=== PATIENT | male | born 1960 | race Caucasian/White ===

== ENCOUNTER 2019-10-21 09:05 | Day surgery (SDC) | payer OTHER ==
[~2019-10-21 09:05] MED LIST: CEFAZOLIN SODIUM 1 GM in DEXTROSE 5%-WATER 50 ML IV PRN; LIDOCAINE 1%/EPINEPHRINE INJ 20 ML VIAL ONE
[2019-10-21 09:51] LABS: HEMATOCRIT 50.9 % (37.9-51.0); HEMOGLOBIN 17.6 g/dL (13.5-17.0); MEAN CORPUSCULAR HEMOGLOBIN 30.7 pg (27.0-33.4); MEAN CORPUSCULAR HGB CONC 34.5 g/dL (32.0-36.0); MEAN CORPUSCULAR VOLUME 89 fl (80-97); PLATELET COUNT 188 10^3/uL (150-450); RED BLOOD COUNT 5.72 10^6/uL (4.35-5.55); RED CELL DISTRIBUTION WIDTH 13.2 % (11.5-14.0); WHITE BLOOD COUNT 5.6 10^3/uL (4.0-10.5)
[2019-10-21 10:11] LABS: ANION GAP 12 (5-19); BLOOD UREA NITROGEN 21 mg/dL (7-20); CALCIUM 9.8 mg/dL (8.4-10.2); CARBON DIOXIDE 28 mmol/L (22-30); CHLORIDE 103 mmol/L (98-107); GLUCOSE 96 mg/dL (75-110); POTASSIUM 3.8 mmol/L (3.6-5.0)
[2019-10-21] MEDS ORDERED: FENTANYL CITRATE INJ/PF 100 MCG/2 ML AMPUL ONE ×2 (10:23→11:30)
[2019-10-21] MEDS ORDERED: MIDAZOLAM 2 MG/2 ML INJ ONE ×2 (10:23→11:31)
[2019-10-21] MEDS ORDERED: PROPOFOL INJ 200 MG/20 ML VIAL IV ONE ×2 (10:24→11:31)
[2019-10-21] MEDS ORDERED: FENTANYL CITRATE INJ/PF 100 MCG/2 ML AMPUL IV PRN ×3 (11:50)
[2019-10-21] MEDS ORDERED: MORPHINE SULFATE 10 MG/ML INJ IV PRN (11:50)
[2019-10-21] MEDS ORDERED: DIPHENHYDRAMINE HCL 50 MG/ML VIAL IV PRN (11:50)
[2019-10-21] MEDS ORDERED: OXYCODONE-ACETAMINOPHEN 5-325 MG TABLET PO PRN ×2 (11:50)
[2019-10-21] MEDS ORDERED: ONDANSETRON HCL INJ/PF 4 MG/2 ML SDV IV PRN (11:50)
[2019-10-21] MEDS ORDERED: MEPERIDINE HCL/PF INJ 25 MG/1 ML DISP.SYRIN IV PRN (11:50)
[2019-10-21] MEDS ORDERED: LIDOCAINE 1%/EPINEPHRINE INJ 20 ML VIAL INJ ONE (12:01)
--- NOTE | 2019-10-21 12:30 | Discharge Summary ---
Discharge Summary (SDC) - Discharge Final Diagnosis: Groin lymphadenopathy Date of Surgery: 10/21/19 Discharge Date: 10/21/19 Condition: Good Treatment or Instructions: Allow Steri-Strips to fall off; shower in 48 hours; prescription on chart; follow-up with Dr. Gamez in 2 weeks. Referrals: ROBI SALVADOR MD [Primary Care Provider] - Discharge Diet: As Tolerated Discharge Activity: Activity As Tolerated Home Care Assistance: None Needed Report the Following to Your Physician Immediately: Shortness of Breath, Increase in Pain, Signs of Hyperglycemia, Fever over 101 Degrees
--- NOTE | 2019-10-21 12:33 | Operative Report ---
Operative Report DATE OF SURGERY: 10/21/19 PREOPERATIVE DIAGNOSIS: Right groin lymphadenopathy and retroperitoneal lymphad enopathy POSTOPERATIVE DIAGNOSIS: Same OPERATION: Open excisional biopsy of right groin superficial lymph node SURGEON: STEVO BRUSH ANESTHESIA: LMAC TISSUE REMOVED OR ALTERED: 1 groin lymph node, enlarged COMPLICATIONS: None ESTIMATED BLOOD LOSS: Scant INTRAOPERATIVE FINDINGS: See below PROCEDURE: The patient was seen in the preop holding area the right groin was marked. The patient then taken the main operating room where LMAC anesthesia was induced. Right groin was prepped and draped with Betadine. Surgical plan surgical timeout conducted. The skin overlying the bulky right groin superficial lymphadenopathy was anesthetized 1% plain lidocaine. Approximately 3-1/2 cm incision was made on the diagonal over the point of maximum tissue distention. Cutaneous tissue was divided with electrocautery. Superficial fascia divided and then the bulky adenopathy was encountered. A 2-0 Vicryl suture was placed in the most prominent lymph node. Attempts were made to resect this lymph node leaving the bulk of the other lymph nodes behind, however it was fused with several lymph nodes which required division using electrocautery. Mainly lymph node surfaces were oversewed with 2-0 Vicryl suture and cauterized. The node excised was approximately 2 cm in width. It contained a 2-0 Vicryl suture. It was sent to pathology fresh in no formalin. The wound was inspected for bleeding and lymph drainage and there was none. Wound closed in layers with 2-0 Vicryl 3-0 Vicryl benzoin and Steri-Strips. Patient tolerated the procedure well, taken recovery room in stable condition.
--- NOTE | 2019-10-21 12:44 | EKG REPORT ---
SEVERITY:- ABNORMAL ECG - SINUS RHYTHM LEFT ANTERIOR FASCICULAR BLOCK : Confirmed by: Katlin Campoverde MD 21-Oct-2019 12:43:55
[2019-10-21] MEDS ORDERED: DEXAMETHASONE SOD PHOSPHATE INJ 4 MG/1 ML VIAL ONE (14:31)
[2019-10-21] MEDS ORDERED: ONDANSETRON HCL INJ/PF 4 MG/2 ML SDV ONE (14:31)
[2019-10-21] MEDS ORDERED: KETOROLAC TROMETHAMINE 60 MG/2 ML SDV ONE (14:31)
[2019-10-21 14:32] VITALS: BP 144/86
== END 2019-10-21 14:20 | disposition home or self-care (01) ==
LOC: OROUT 09:05
PROVIDERS: ATTEND Surgery
DX: C85.15 Unspecified B-cell lymphoma, lymph nodes of inguinal region and lower limb (principal); I10 Essential (primary) hypertension; Z79.899 Other long term (current) drug therapy
CPT/HCPCS: 36415; 88185 ×15; 88184; 85027; 80048; 88233; 88262; 88305 ×2; 93005; 93010; 00400; 38500; J2250; J0690; J1100; J1885; J3010; J3490; J2405; J7060; J2704; 400

== ENCOUNTER → 2020-05-18 | Outpatient (CLI) | payer OTHER ==
--- NOTE | 2020-05-18 09:41 | RADIOLOGY REPORT (SQ) ---
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 TECHNIQUE: CT scan of the chest performed using helical scanning technique with dynamic intravenous contrast injection. Images reviewed with lung, soft tissue and bone windows. Reconstructed coronal a nd sagittal MPR images reviewed. All images stored on PACS. All CT scanners at this facility use dose modulation, iterative reconstruction, and/or weight based d osing when appropriate to reduce radiation dose to as low as reasonably achievable (ALARA). [facility]: Dose Right [facility]: CareDose [facility]: Dose Right [facility]: Teradose 4D [facility]: [employer] RADIATION DOSE: CT Rad equipment meets quality standard of care and radiation dose reduction techniq ues were employed. CTDIvol: 11.4 - 15.0 mGy. DLP: 1783 mGy-cm. . LIMITATIONS: None. FINDINGS: AXILLAE: Small axillary nodes are most likely reactive. CHEST WALL: No masses. No subcutaneous air. LUNGS: No nodules or masses. No pneumothorax. No infiltrates. PLEURA: No effusions. No calcifications. THYROID: No masses or significant asymmetry. HILAR AND MEDIASTINAL STRUCTURES: No identified masses or abnormal nodes. AORTA AND GREAT VESSELS: No aneurysm. No dissection. PULMONARY ARTERIES: No identified pulmonary emboli. Study not optimized for the pulmonary arteries. HEART: No pericardial effusion. HARDWARE AND LIFELINES: None. BONES: No significant finding. OTHER: No other significant finding. IMPRESSION: No evidence of metastatic disease in the chest. COMPARISON: None. RADIATION DOSE: CT Rad equipment meets quality standard of care and radiation dose reduction techniq ues were employed. CTDIvol: 11.4 - 15.0 mGy. DLP: 1783 mGy-cm. mGy. TECHNIQUE: CT scan of the abdomen and pelvis performed with intravenous and oral contrast using zenaida kenna scanning technique with dynamic intravenous contrast injection. Images reviewed with lung, soft tissue and bone windows. Reconstructed coronal and sagittal MPR images reviewed. Delayed images for evaluation of the urinary system also acquired and evaluated. All images stored on PACS. All CT scanners at this facility use dose modulation, iterative reconstruction, and/or weight based d osing when appropriate to reduce radiation dose to as low as reasonably achievable (ALARA). [facility]: Dose Right [facility]: SureCare [facility]: Dose Right [facility]: Teradose 4D [facility]: [employer]arity FINDINGS: LIVER: Normal size. No masses. No dilated ducts. SPLEEN: Normal size. No focal lesions. PANCREAS: No masses. No significant calcifications. No adjacent inflammation or peripancreatic flui d collections. Pancreatic duct not dilated. GALLBLADDER: No identified stones by CT criteria. No inflammatory changes to suggest cholecystitis. ADRENAL GLANDS: No significant masses or asymmetry. RIGHT KIDNEY AND URETER: No solid masses. Stable nonobstructing right renal calculi. Small cysts. No hydronephrosis or hydroureter. LEFT KIDNEY AND URETER: No solid masses. No significant calcifications. No hydronephrosis or hydr oureter. AORTA AND VESSELS: No aneurysm. No dissection. Renal arteries, SMA, celiac without stenosis. RETROPERITONEUM: Stable fairly extensive periaortic and retroperitoneal adenopathy. No interval [place] size. The largest node is along the right inguinal neurovascular bundle and measures diane roximately 2.6 cm. Persistent pelvic and inguinal adenopathy also unchanged. LARGE AND SMALL BOWEL: No dilatation. No masses. No wall thickening. APPENDIX: Normal. ABDOMINAL WALL: No hernia or masses. PERITONEAL CAVITY: No free air. No free fluid. No peritoneal implants or masses. PELVIS: No mass or free fluid. Normal bladder. BONES: No significant or acute findings. OTHER: No other significant finding. IMPRESSION: Stable extensive periaortic and retroperitoneal adenopathy. No interval change in size. TECHNICAL DOCUMENTATION: JOB ID: [id number] Quality ID # [id number]: Final reports with documentation of one or more dose reduction techniques (e.g., Au tomated exposure control, adjustment of the mA and/or kV according to patient size, use of iterative reconstruction technique) 2010 [employer]- All Rights Reserved Reading location - IP/workstation name: [email or web address]
--- NOTE | 2020-05-18 09:41 | RADIOLOGY REPORT (SQ) ---
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 TECHNIQUE: CT scan of the chest performed using helical scanning technique with dynamic intravenous contrast injection. Images reviewed with lung, soft tissue and bone windows. Reconstructed coronal a nd sagittal MPR images reviewed. All images stored on PACS. All CT scanners at this facility use dose modulation, iterative reconstruction, and/or weight based d osing when appropriate to reduce radiation dose to as low as reasonably achievable (ALARA). [facility]: Dose Right [facility]: CareDose [facility]: Dose Right [facility]: Teradose 4D [facility]: [employer] RADIATION DOSE: CT Rad equipment meets quality standard of care and radiation dose reduction techniq ues were employed. CTDIvol: 11.4 - 15.0 mGy. DLP: 1783 mGy-cm. . LIMITATIONS: None. FINDINGS: AXILLAE: Small axillary nodes are most likely reactive. CHEST WALL: No masses. No subcutaneous air. LUNGS: No nodules or masses. No pneumothorax. No infiltrates. PLEURA: No effusions. No calcifications. THYROID: No masses or significant asymmetry. HILAR AND MEDIASTINAL STRUCTURES: No identified masses or abnormal nodes. AORTA AND GREAT VESSELS: No aneurysm. No dissection. PULMONARY ARTERIES: No identified pulmonary emboli. Study not optimized for the pulmonary arteries. HEART: No pericardial effusion. HARDWARE AND LIFELINES: None. BONES: No significant finding. OTHER: No other significant finding. IMPRESSION: No evidence of metastatic disease in the chest. COMPARISON: None. RADIATION DOSE: CT Rad equipment meets quality standard of care and radiation dose reduction techniq ues were employed. CTDIvol: 11.4 - 15.0 mGy. DLP: 1783 mGy-cm. mGy. TECHNIQUE: CT scan of the abdomen and pelvis performed with intravenous and oral contrast using zenaida kenna scanning technique with dynamic intravenous contrast injection. Images reviewed with lung, soft tissue and bone windows. Reconstructed coronal and sagittal MPR images reviewed. Delayed images for evaluation of the urinary system also acquired and evaluated. All images stored on PACS. All CT scanners at this facility use dose modulation, iterative reconstruction, and/or weight based d osing when appropriate to reduce radiation dose to as low as reasonably achievable (ALARA). [facility]: Dose Right [facility]: SureCare [facility]: Dose Right [facility]: Teradose 4D [facility]: [employer] FINDINGS: LIVER: Normal size. No masses. No dilated ducts. SPLEEN: Normal size. No focal lesions. PANCREAS: No masses. No significant calcifications. No adjacent inflammation or peripancreatic flui d collections. Pancreatic duct not dilated. GALLBLADDER: No identified stones by CT criteria. No inflammatory changes to suggest cholecystitis. ADRENAL GLANDS: No significant masses or asymmetry. RIGHT KIDNEY AND URETER: No solid masses. Stable nonobstructing right renal calculi. Small cysts. No hydronephrosis or hydroureter. LEFT KIDNEY AND URETER: No solid masses. No significant calcifications. No hydronephrosis or hydr oureter. AORTA AND VESSELS: No aneurysm. No dissection. Renal arteries, SMA, celiac without stenosis. RETROPERITONEUM: Stable fairly extensive periaortic and retroperitoneal adenopathy. No interval [place] in [place] size. The largest node is along the right inguinal neurovascular bundle and measures diane roximately 2.6 cm. Persistent pelvic and inguinal adenopathy also unchanged. LARGE AND SMALL BOWEL: No dilatation. No masses. No wall thickening. APPENDIX: Normal. ABDOMINAL WALL: No hernia or masses. PERITONEAL CAVITY: No free air. No free fluid. No peritoneal implants or masses. PELVIS: No mass or free fluid. Normal bladder. BONES: No significant or acute findings. OTHER: No other significant finding. IMPRESSION: Stable extensive periaortic and retroperitoneal adenopathy. No interval change in size. TECHNICAL DOCUMENTATION: JOB ID: [id number] Quality ID # [id number]: Final reports with documentation of one or more dose reduction techniques (e.g., Au tomated exposure control, adjustment of the mA and/or kV according to patient size, use of iterative reconstruction technique) 2010 [employer]- All Rights Reserved Reading location - IP/workstation name: [email or web address]
== END ==
LOC: RAD 07:52
PROVIDERS: ATTEND Internal Medicine
DX: C82.18 Follicular lymphoma grade II, lymph nodes of multiple sites (principal)
CPT/HCPCS: 71260; 74177; 82565

== ENCOUNTER → 2020-11-19 | Outpatient (CLI) | payer OTHER ==
--- NOTE | 2020-11-19 13:24 | RADIOLOGY REPORT (SQ) ---
EXAM DESCRIPTION: CT CHEST WITH IMAGES COMPLETED DATE/TIME: 11/19/2020 9:15 am REASON FOR STUDY: LYMPHOMA C82.18 FOLLICULAR LYMPHOMA GRADE II, LYMPH NODES OF MULTIPLE COMPARISON: 05/18/2020 TECHNIQUE: CT scan of the chest performed using helical scanning technique with dynamic intravenous contrast injection. Images reviewed with lung, soft tissue and bone windows. Reconstructed coronal and sagittal MPR and MIP images reviewed. All images stored on PACS. All CT scanners at this facility use dose modulation, iterative reconstruction, and/or weight based d osing when appropriate to reduce radiation dose to as low as reasonably achievable (ALARA). [facility]: Dose Right [facility]: CareDose [facility]: Dose Right [facility]: Teradose 4D [facility]: [employer] CONTRAST TYPE AND DOSE: 100 mL Omnipaque 350- low osmolar. RENAL FUNCTION: Creatinine 1.3 RADIATION DOSE: CT Rad equipment meets quality standard of care and radiation dose reduction techniq ues were employed. CTDIvol: 9.9 - 10.1 mGy. DLP: 1585 mGy-cm. . LIMITATIONS: None. FINDINGS: LUNGS AND PLEURA: No opacities, nodules, masses. No pneumothorax. No effusions. HILAR AND MEDIASTINAL STRUCTURES: No identified masses or abnormal nodes. HEART AND VASCULAR STRUCTURES: No aneurysm or dissection. No central pulmonary emboli. No pericardi al effusion. HARDWARE: None in the chest. UPPER ABDOMEN: See separate report of the CT of the abdomen. THYROID AND OTHER SOFT TISSUES: The thyroid is unremarkable. There are some axillary lymph nodes nicolas aterally that are larger than on the prior study. Left more than right. BONES: No significant finding. OTHER: No other significant finding. IMPRESSION: There are some axillary lymph nodes bilaterally that are larger than on the prior study. No other significant findings. TECHNICAL DOCUMENTATION: JOB ID: [id number] Quality ID # [id number]: Final reports with documentation of one or more dose reduction techniques (e.g., Au tomated exposure control, adjustment of the mA and/or kV according to patient size, use of iterative reconstruction technique) 2010 [employer]- All Rights Reserved Reading location - IP/workstation name: [email or web address]
--- NOTE | 2020-11-19 13:54 | RADIOLOGY REPORT (SQ) ---
EXAM DESCRIPTION: CT ABD/PELVIS WITH IV ONLY IMAGES COMPLETED DATE/TIME: 11/19/2020 9:15 am REASON FOR STUDY: LYMPHOMA C82.18 FOLLICULAR LYMPHOMA GRADE II, LYMPH NODES OF MULTIPLE COMPARISON: 05/18/2020 TECHNIQUE: CT scan of the abdomen and pelvis performed using helical scanning technique with dynamic intravenous contrast injection. No oral contrast. Images reviewed with lung, soft tissue, and bone windows. Reconstructed coronal and sagittal MPR images reviewed. Delayed images for evaluation of the urinary system also acquired. All images stored on PACS. All CT scanners at this facility use dose modulation, iterative reconstruction, and/or weight based d osing when appropriate to reduce radiation dose to as low as reasonably achievable (ALARA). [facility]: Dose Right [facility]: CareDose [facility]: Dose Right [facility]: Teradose 4D [facility]: [employer] CONTRAST TYPE AND DOSE: contrast/concentration: Isovue 350.00 mmol/ml; Total Contrast Delivered: 100 .0 ml; Total Saline Delivered: 40.0 ml RENAL FUNCTION: Creatinine 1.3 RADIATION DOSE: . LIMITATIONS: None. FINDINGS: LOWER CHEST: See separate report of the CT of the chest. LIVER: Normal size. No masses. No dilated ducts. SPLEEN: Splenomegaly with splenic index of 881. PANCREAS: No masses. No significant calcifications. No adjacent inflammation or peripancreatic fluid collections. Pancreatic duct not dilated. GALLBLADDER: No identified stones by CT criteria. No inflammatory changes to suggest cholecystitis. ADRENAL GLANDS: No significant masses or asymmetry. RIGHT KIDNEY AND URETER: No solid masses. No significant calcifications. No hydronephrosis or hyd roureter. LEFT KIDNEY AND URETER: No solid masses. No significant calcifications. No hydronephrosis or hydr oureter. AORTA AND VESSELS: No aneurysm. No dissection. Renal arteries, SMA, celiac without stenosis. RETROPERITONEUM: Periaortic and retroperitoneal adenopathy is present. The largest node measures 28. 2 mm on image 63. This is slightly larger than on the prior study. Pelvic and inguinal adenopathy i s once again present. BOWEL AND PERITONEAL CAVITY: No masses or inflammatory changes. No free fluid or peritoneal masses. APPENDIX: Normal. PELVIS: No mass. No free fluid. Normal bladder. ABDOMINAL WALL: No masses. No hernias. BONES: No significant or acute findings. OTHER: No other significant finding. IMPRESSION: Splenomegaly with abdominal and pelvic adenopathy and inguinal adenopathy as described. TECHNICAL DOCUMENTATION: JOB ID: [id number] Quality ID # [id number]: Final reports with documentation of one or more dose reduction techniques (e.g., Au tomated exposure control, adjustment of the mA and/or kV according to patient size, use of iterative reconstruction technique) 2010 [employer]- All Rights Reserved Reading location - IP/workstation name: [email or web address]
--- OUTSIDE RECORDS SUMMARY | 2020-11-19 14:31 | XMS REPORT ---
:1960 [facility] [address] [place] [address] Care Team Providers Name Role Phone PCP, UNAVAILABLE Primary Care Physician Unavailable Kirit Bhakta Attending Clinician Unavailable Allergies, Adverse Reactions, Alerts This patient has no known allergies or adverse reactions. Medications Ordered Filled Start Stop Current Ordering Indication Dosage Frequency Signature Comments Components Medication Medication Date Date Medication? Clinician (SIG) Name Name amlodipine No amlodipine 5 mg tablet 5 mg tablet Ear Drops No Ear Drops (carbamide (carbamide peroxide) peroxide) 6.5 % 6.5 % INSTIL 5 INSTIL 5 DROPS INTO DROPS INTO EACH EAR EACH EAR TWICE A DAY TWICE A FOR 4 DAY DAY FOR 4 DAY Flucelvax No Flucelvax Quad Quad (PF) 60 mcg (PF) 60 (15 mcg x mcg (15 4)/0.5 mL mcg x IM syringe 4)/0.5 mL PHARMACY IM syringe [facility]MINISTERE [facility] D ADMINISTER ED hydrochloro No hydrochlor thiazide othiazide 12.5 mg 12.5 mg capsule capsule ibuprofen No ibuprofen 800 mg 800 mg tablet tablet Shingrix No Shingrix (PF) 50 (PF) 50 mcg/0.5 mL mcg/0.5 mL intramuscul intramuscu ar lar suspension, suspension kit , kit tamsulosin No tamsulosin 0.4 mg 0.4 mg capsule capsule valsartan No valsartan 320 320 mg-hydrochl mg-hydroch orothiazide lorothiazi 12.5 mg de 12.5 mg tablet tablet Valsartan Yes 1 propranolol No propranolo 10 mg l 10 mg tablet PRN tablet PRN tadalafil No tadalafil 20 mg 20 mg tablet PRN tablet PRN valsartan No 1 Q1D valsartan 160 160 mg-hydrochl mg-hydroch orothiazide lorothiazi 12.5 mg de 12.5 mg tablet Take tablet 1 tablet Take 1 every day tablet by oral every day route in by oral the morning route in for 90 the days. morning for 90 days. Mobic 15 mg No 1 Q1D Mobic 15 tablet Take mg tablet 1 tablet Take 1 every day tablet by oral every day route as by oral directed route as for 30 directed days. for 30 days. 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 Procedures Procedure Date / Time Performed Performing Clinician Devic e RADIOLOGIC EXAM, KNEE; COMPLETE, 4 2020-04-08 00:00:00 OR MORE VIEWS Biopsy 2019-09-29 00:00:00 colonoscopy 2016-10-30 00:00:00 Vasectomy 2009-10-30 00:00:00 KNEE ARTHROSCOPY/SURGERY 2007-10-30 00:00:00 KNEE ARTHROSCOPY/SURGERY 2006-10-30 00:00:00 Lithroripsy 2003-10-30 00:00:00 Arthroscopic bilateral knee surgery R groin LN excisional bx Results Test Description Test Time Test Comments Text Results Atomic Results Result Comments WBC 2020-08-21 13:51:00 Test Item Value Reference Range Comments WBC (test code = WBC) 6.9000 4.0000-10.0000 Lymphocytes % (test code = Lymphocytes %) 18.7000 % 22.400 0-43.6000 MID% (test code = MID%) 4.8000 % 1.2000-11 Neutrophils % (test code = Neutrophils %) 76.5000 % 48.900 0-69.9000 Lymphocytes (test code = Lymphocytes) 1.3000 1.2000-3.2 000 MID (test code = MID) 0.3000 0.1000-1.1000 Neutrophils (test code = Neutrophils) 5.3000 1.5000-6.7 000 RBC (test code = RBC) 5.4900 3.7000-4.9000 HGB (test code = HGB) 15.9000 g/dL 11.2000-18.0000 HCT (test code = HCT) 46.5000 % 34.0000-44.0000 MCV (test code = MCV) 84.5000 fL 80.0000-94.0000 MCH (test code = MCH) 28.9000 pg 27.0000-34.0000 MCHC (test code = MCHC) 34.2000 g/dL 31.5000-36.0000 RDW (test code = RDW) 14.1000 11.0000-18.0000 PLT (test code = PLT) 206.0000 140.0000-440.0000 MPV (test code = MPV) 7.5000 fL 6.8000-10.6000 [id number] 14:22:00 Test Item Value Reference Range Comments Creatinine (test code = Creatinine) 1.2300 mg/dL 0.7600-1.270 0 Cr Clearance (Est) (test code = Cr 86.1300 85.0000-125.0 000 Clearance (Est)) Glucose (test code = Glucose) 86.0000 mg/dL 65.0000-99.0000 BUN (test code = BUN) 16.0000 mg/dL 8.0000-27.0000 eGFR Fhe-Dersutp-Vcwwdbyw (test code = 63.0000 eGFR Uds-Zqixnho-Njpnhgog) eGFR -Beninese (test code = eGFR 73.0000 -Beninese) BUN/Creat Ratio (test code = BUN/Creat 13.0000 10.0000-2 4.0000 Ratio) Sodium (test code = Sodium) 143.0000 mmol/L 134.0000-144.0000 Potassium (test code = Potassium) 4.1000 mmol/L 3.5000-5.2000 Chloride (test code = Chloride) 102.0000 mmol/L 96.0000-106.0000 CO2 (test code = CO2) 23.0000 mmol/L 20.0000-29.0000 Calcium (test code = Calcium) 9.8000 mg/dL 8.6000-10.2000 Protein, Total (test code = Protein, 7.0000 g/dL 6.0000-8.50 00 Total) Albumin (test code = Albumin) 4.7000 g/dL 3.8000-4.9000 Globulin (test code = Globulin) 2.3000 g/dL 1.5000-4.5000 A/G Ratio (test code = A/G Ratio) 2.0000 1.2000-2.2000 Bilirubin, Total (test code = Bilirubin, 0.6000 mg/dL 0.0000- 1.2000 Total) Alkaline Phosphatase (test code = Alkaline 61.0000 39.00 00-117.0000 Phosphatase) AST (SGOT) (test code = AST (SGOT)) 24.0000 0.0000-40.00 00 ALT (SGPT) (test code = ALT (SGPT)) 38.0000 0.0000-44.00 00 LDH, Total (test code = LDH, Total) 192.0000 121.0000-224 .0000 [id number] 13:10:00 Test Item Value Reference Range Comments WBC (test code = WBC) 5.5000 4.0000-10.0000 Lymphocytes % (test code = Lymphocytes %) 18.0000 % 22.400 0-43.6000 MID% (test code = MID%) 18.1000 % 1.2000-11.1999 Neutrophils % (test code = Neutrophils %) 63.9000 % 48.900 0-69.9000 Lymphocytes (test code = Lymphocytes) 0.9000 1.2000-3.2 000 MID (test code = MID) 1.1000 0.1000-1.1000 Neutrophils (test code = Neutrophils) 3.5000 1.5000-6.7 000 RBC (test code = RBC) 5.6800 3.7000-4.9000 HGB (test code = HGB) 17.1000 g/dL 11.2000-18.0000 HCT (test code = HCT) 49.9000 % 34.0000-44.0000 MCV (test code = MCV) 87.8000 fL 80.0000-94.0000 MCH (test code = MCH) 30.1000 pg 27.0000-34.0000 MCHC (test code = MCHC) 34.3000 g/dL 31.5000-36.0000 RDW (test code = RDW) 14.4000 11.0000-18.0000 PLT (test code = PLT) 200.0000 140.0000-440.0000 MPV (test code = MPV) 8.0000 fL 6.8000-10.6000 Assessments Condition Name Status Diagnosis Date Treating Clinici an Pain in left knee Active 2020-09-09 14:39:23 Osteoarthritis of knee Active 2020-09-14 21:19:27 Pain in left knee Active 2020-05-21 14:13:29 Pain in left knee Active 2020-04-08 09:49:27 Osteoarthritis of knee Active 2020-04-13 07:06:25 Encounters Start End Encounter Admission Attending Care Care Encounter Date/Time Date/Time Type Type Clinicians Facility Department ID 2020-09-10 2020-09-10 Mateo Regalado [id number] 00:00:00 00:00:00 [facility] [id number] PAC: [address] [facility], [place] [address], Ph. 2020-08-21 2020-08-21 Outpatient ParishflorinaLamont rn [id number] 00:00:00 00:00:00 [facility] 2020-05-21 2020-05-21 Mateo Regalado 2628 [id number] 00:00:00 00:00:00 [facility] [id number] PAC: [address] [facility], [address], [place] [address], Ph. 2020-05-20 2020-05-20 Mrs. Parish PrakashflorinaLamont rn [id number] 00:00:00 00:00:00 Angelica Blackman [facility] 2020-05-07 2020-05-07 Outpatient Lamont Miguel n [id number] 00:00:00 00:00:00 [facility] 2020-04-30 2020-04-30 Outpatient Lamont Miguel n [id number] 00:00:00 00:00:00 [facility] 2020-04-08 2020-04-08 Mateo Regalado [id number] 00:00:00 00:00:00 [facility] [id number] PAC: [address] [place] [address], Ph. 2020-02-20 2020-02-20 Outpatient Lamont Miguel n [id number] 00:00:00 00:00:00 [facility] On[facility] Oncology [facility] 2020-02-14 2020-02-14 Dwain, Lamont Craft rn [id number] 00:00:00 00:00:00 Angelica Blackman [facility] On[facility] Oncology [facility] 2020-02-10 2020-02-10 Outpatient Lamont Beth rn [id number] 00:00:00 [facility] 2019-11-11 2019-11-11 Dwain, Lamont Craft rn [id number] 00:00:00 00:00:00 Angelica Blackman [facility] On[facility] Oncology [facility] 2019-11-01 2019-11-01 Outpatient Lamont Miguel n [id number] 00:00:00 00:00:00 [facility] Oncology [facility] 2019-10-29 2019-10-29 Kirit Beth [facility] [id number] 00:00:00 00:00:00 Dr. Yehuda verma [facility] Oncology Oncology [facility] 2019-10-25 2019-10-25 Outpatient [facility] [id number] 00:00:00 00:00:00 _[id number] 2019-10-21 2019-10-21 Outpatient Lamont Miguel n [id number] 00:00:00 00:00:00 [facility] Oncology [facility] 2019-10-15 2019-10-15 Outpatient Lamont Miguel n [id number] 00:00:00 00:00:00 [facility] Oncology Oncology [facility] 2019-10-11 2019-10-11 Outpatient Lamont Miguel n [id number] 00:00:00 00:00:00 [facility] Oncology [facility] Immunizations Ordered Immunization Filled Immunization Date Status Commen ts Refusal Reason Name Name influenza, 2019-08-30 Completed injectable, 00:00:00 quadrivalent influenza, 2019-07-30 Completed unspecified 00:00:00 formulation Hep C 1999-05-30 Completed 00:00:00 Payers Payer Name Policy Type Policy Number Effective Date Expiration D ate [facility] [id number] 2015 00:00:00 Social History Smoking Status Start Date Stop Date Never 2020-08-21 00:00:00 Social History Observation Description Sex Male Vital Signs Vital Name Observation Time Observation Value Comments Height 2020-09-10 00:00:00 71 [in_i] BMI (Body Mass Index) 2020-09-10 00:00:00 29.3 kg/m2 Body Weight 2020-09-10 00:00:00 210 [lb_av] Height 2020-05-21 00:00:00 71 [in_i] BMI (Body Mass Index) 2020-05-21 00:00:00 29.3 kg/m2 Body Weight 2020-05-21 00:00:00 210 [lb_av] Height 2020-04-08 00:00:00 71 [in_i] BMI (Body Mass Index) 2020-04-08 00:00:00 29.3 kg/m2 Body Weight 2020-04-08 00:00:00 210 [lb_av] BMI 2020-08-21 13:58:55 29.4000 BP luna 2020-08-21 13:58:55 82.0000 mm[Hg] Bdy height 2020-08-21 13:58:55 71.0000 [in_i] SaO2% BldA PulseOx 2020-08-21 13:58:55 97.0000 % Heart rate 2020-08-21 13:58:55 81.0000 /min Resp rate 2020-08-21 13:58:55 16.0000 /min BP sys 2020-08-21 13:58:55 136.0000 mm[Hg] Body temperature 2020-08-21 13:58:55 99.1000 [degF] Weight 2020-08-21 13:58:55 210.8000 [lb_av] BMI 2020-05-20 13:31:54 29.3200 BP luna 2020-05-20 13:31:54 99.0000 mm[Hg] Bdy height 2020-05-20 13:31:54 71.0000 [in_i] SaO2% BldA PulseOx 2020-05-20 13:31:54 97.0000 % Heart rate 2020-05-20 13:31:54 58.0000 /min Resp rate 2020-05-20 13:31:54 18.0000 /min BP sys 2020-05-20 13:31:54 156.0000 mm[Hg] Body temperature 2020-05-20 13:31:54 98.8000 [degF] Weight 2020-05-20 13:31:54 210.2000 [lb_av] BMI 2019-11-11 10:30:12 31.4100 BP luna 2019-11-11 10:30:12 97.0000 mm[Hg] Bdy height 2019-11-11 10:30:12 71.0000 [in_i] SaO2% BldA PulseOx 2019-11-11 10:30:12 95.0000 % Heart rate 2019-11-11 10:30:12 57.0000 /min Resp rate 2019-11-11 10:30:12 18.0000 /min BP sys 2019-11-11 10:30:12 181.0000 mm[Hg] Body temperature 2019-11-11 10:30:12 97.9000 [degF] Weight 2019-11-11 10:30:12 225.2000 [lb_av] BMI 2019-10-29 13:31:21 30.8200 BP luna 2019-10-29 13:31:21 104.0000 mm[Hg] Bdy height 2019-10-29 13:31:21 71.0000 [in_i] SaO2% BldA PulseOx 2019-10-29 13:31:21 97.0000 % Heart rate 2019-10-29 13:31:21 64.0000 /min Resp rate 2019-10-29 13:31:21 16.0000 /min BP sys 2019-10-29 13:31:21 156.0000 mm[Hg] Body temperature 2019-10-29 13:31:21 97.5000 [degF] Weight 2019-10-29 13:31:21 221.0000 [lb_av] Hospital Discharge Instructions 1. Pain in left knee 2. Osteoarthritis of knee Discussion Note Patient educated again on differential treatment options available Knee was injected as above Patient educational handouts: No informationavailable.1. Pain in left knee Mobic 15 mg tablet Discussion Note Patient educated on differential diagnosis and MRI findings -MRI is consistent with a horizontal tear of the posterior aspect of the medial meniscus. As well as tricompartmental grade 3/4 osteoarthritis Discussed treatment options available Patient would like to start on a home exercise program Follow-up in 2 months for repeat evaluation consider injection at that time Discussed possible total knee arthroplasty as well Patient educational handouts: No information available.1. Pain in left knee XR, knee, 4 or more view 2. Osteoarthritis of knee Discussion Note Knee was aspirated and injected today patient was educated on dd and treatment options see above procedure note - normal appearing joint fluid with no blood follow up in 2 months for repeat eval consider repeataspiration at follow up Patient educational handouts: No information available.
== END ==
LOC: RAD 09:24
PROVIDERS: ATTEND Internal Medicine
DX: C82.18 Follicular lymphoma grade II, lymph nodes of multiple sites (principal)
CPT/HCPCS: 71260; 74177; 82565